=== PATIENT | male | born 1930 | race African-American/Black ===

== ENCOUNTER 2017-07-29 09:54 | Emergency (ER) | payer OTHER ==
[~2017-07-29] VITALS: Ht 180.3 cm; Wt 127.0 kg
[~2017-07-29 09:54] MED LIST: ACETAMINOPHEN325 M1 PO; ACIDOPHILUS1 EAC3 PO; ALBUTEROL NEB INH; ALLOPURINOL 10100 M1 PO; AMOXICILLIN 50500 MG PO; ARTIFICIAL TEAR15 M3; ASPIR 8181 MG PO; BACTRIM DS TAB1 EACH PO; CARVEDILOL3.125 MG PO; CELEXA10 MG PO; CIPRO250 M1 PO; COLACE100 MG PO; COUGH CONT100 MG/5 M; COUMADIN 5 MG TA5 M1 PO; DUONEB 2.5-0.5 M3 ML INH; HYDROCODON-ACE1 EACH PO; IPRAT-ALBUT 0.5-3 ML IH; IRON325 PO; K-DUR 20 MEQ T20 MEQ PO; LASIX 40 MG TAB40 M1 PO; LASIX 40 MG TAB40 M2 PO; LEXAPRO20 MG PO; LEXAPRO5 MG PO; LIPITOR10 MG PO; LISINOPRIL5 MG PO; METFORMIN HCL500 MG PO; MILK OF MA2400 MG/10 PO; MIRALAX17 GM PO; MOM PO; NITROSTAT0.4 MG PO; NYSTATIN CREAM; ONDANSETRON HCL4 M2 PO; ROBITUSSIN COL1 EACH PO; SANTYL OINTMENT30 G1 TP; SENNA8.6 MG PO; SODIUM BICARBO650 M3 PO; SSD CREAM 1% 5050 GM TOP; TYLENOL EXTRA500 MG; TYLENOL325 MG PO; ULTRAM 50MG TAB50 MG PO; UNICOMPLEX M TA1 TA1 PO; VITAMIN B-12500 MCG PO; VITAMIN D250000 UNIT; VITAMINC500 PO; ZESTRIL5 MG PO; [UNRECOGNIZED DRUG - OTHER] PO
== END 2017-07-29 10:00 ==
LOC: ER 09:54
DX: I46.9 Cardiac arrest, cause unspecified (principal); M10.9 Gout, unspecified; D64.9 Anemia, unspecified; I50.9 Heart failure, unspecified; J44.9 Chronic obstructive pulmonary disease, unspecified; E11.9 Type 2 diabetes mellitus without complications; F32.9 Major depressive disorder, single episode, unspecified; I12.9 Hypertensive chronic kidney disease with stage 1 through stage 4 chronic kidney disease, or unspecified chronic kidney disease; N18.3 Chronic kidney disease, stage 3 (moderate); F17.210 Nicotine dependence, cigarettes, uncomplicated